=== PATIENT | female | born 1945 | race Asian ===

== ENCOUNTER 2017-03-03 21:56 | Emergency (ER) | payer MEDICARE, OTHER ==
[~2017-03-03] VITALS: Ht 157.5 cm; Wt 75.0 kg
[2017-03-03] MEDS ORDERED: WARF3TAB29 PO (22:24)
[2017-03-03] MEDS ORDERED: BENA40TA3 PO (22:24)
[2017-03-03] MEDS ORDERED: LEVO88TA7 PO (22:24)
[2017-03-03] MEDS ORDERED: AMIO200T2 PO (22:24)
[2017-03-03] MEDS ORDERED: SIMV20TA6 PO (22:24)
[2017-03-03] MEDS ORDERED: AMLO10TA55 PO (22:24)
[2017-03-03] MEDS ORDERED: WARF2.5 PO (22:24)
[2017-03-03] MEDS ORDERED: HYDR25TA84 PO (22:24)
[2017-03-03 22:32] LABS: BASOPHILS # (AUTO) 0.02 K/uL (0.00-0.20); BASOPHILS % (AUTO) 0.1 % (0.0-2.0); EOSINOPHILS # (AUTO) 0.21 K/uL (0.00-0.70); EOSINOPHILS % (AUTO) 1.35 % (1.0-6.0); HEMATOCRIT 30.4 % (36-46); HEMOGLOBIN 9.7 g/dL (12.0-16.0); LYMPHOCYTES # (AUTO) 2.1 K/uL (1.0-4.8); LYMPHOCYTES % (AUTO) 13.7 % (22.0-44.0); MEAN CORPUSCULAR HEMOGLOBIN 29.1 pg (26.0-34.0); MEAN CORPUSCULAR HGB CONC 31.9 G/dL (31.0-37.0); MEAN CORPUSCULAR VOLUME 91 fL (80-100); MONOCYTES # (AUTO) 0.9 K/uL (0.1-1.0); NEUTROPHILS # (AUTO) 12.1 K/uL (1.8-7.7); NEUTROPHILS % (AUTO) 78.8 % (40.0-70.0); PLATELET COUNT (AUTO) 639 K/uL (150-450); RED BLOOD CELL COUNT(AUTO) 3.33 MIL/uL (4.00-5.20); RED CELL DISTRIBUTION WIDTH 16.2 % (11.5-14.5); WHITE BLOOD COUNT (AUTO) 15.4 K/uL (4.5-11.0)
[2017-03-03 22:40] LABS: CREATININE 1.17 mg/dL (0.60-1.30); POTASSIUM 3.8 mmol/L (3.5-5.1)
[2017-03-03 22:46] LABS: ALBUMIN 2.5 g/dL (3.4-5.0); BILIRUBIN,TOTAL 0.5 mg/dL (0.1-1.0); TOTAL PROTEIN, SERUM 7.9 g/dL (6.4-8.2)
[2017-03-03 22:55] LABS: INR 1.8 (0.9-1.1); PROTHROMBIN TIME 18.6 SEC (9.4-11.6)
[2017-03-03] MEDS ORDERED: GENTAMICIN SULFATE 160 MG in DEXTROSE 5%-WATER 100 ML IV ONE (23:15)
[2017-03-03] MEDS ORDERED: CefTRIAXone SODIUM 2 GM in DEXTROSE 5%-WATER 50 ML IV ONE (23:15)
[2017-03-03] MEDS ORDERED: CLON.1 PO (23:59)
[2017-03-04 00:06] LABS: APPEARANCE,URINE CLOUDY (CLEAR); GLUCOSE, URINE (UA) NEGATIVE (NEGATIVE); KETONES,URINE NEGATIVE (NEGATIVE); LEUKOCYTE ESTERASE ,URINE SMALL (NEGATIVE); OCCULT BLOOD,URINE NEGATIVE (NEGATIVE); PH,URINE 5.5 (5.0-8.0); PROTEIN,URINE SEE CONFIRM (NEGATIVE)
[2017-03-04 00:14] LABS: SULFOSALICYLIC ACID,URINE 1+ (Negative)
[2017-03-04 00:15] LABS: RBC,URINE 0-2 /HPF (0-2); SQUAMOUS EPITHELIAL CELL,UR Few /LPF (None Seen)
[2017-03-04] MEDS ORDERED: HYDROCODONE/ACETAMINOPHEN 5-325 MG TABLET PO ONE (01:00)
[2017-03-04 03:46] VITALS: BP 159/57
== END 2017-03-04 03:55 | disposition home or self-care (01) ==
LOC: EMS 21:59
DX: L03.114 Cellulitis of left upper limb (principal); E44.0 Moderate protein-calorie malnutrition; R79.1 Abnormal coagulation profile; E78.00 Pure hypercholesterolemia, unspecified; I11.9 Hypertensive heart disease without heart failure; I51.9 Heart disease, unspecified; Z88.1 Allergy status to other antibiotic agents; Z91.011 Allergy to milk products; Z95.2 Presence of prosthetic heart valve; Z88.8 Allergy status to other drugs, medicaments and biological substances
CPT/HCPCS: 29125; 29240; 36415; 73110; 80053; 81001; 85025; 85610; 85730; 87040; 96375; 99285; J0696; J1580; J7060 ×2; 96365

== ENCOUNTER 2020-12-04 22:12 | Emergency (ER) | payer MEDICARE, OTHER ==
[~2020-12-04] VITALS: Ht 157.5 cm; Wt 77.3 kg
[~2020-12-04 22:12] MED LIST: AMIO200T6 PO; AMLO10TA55 PO; BENA40TA9 PO; CLON0.1T2 PO; HYDR25TA84 PO; LEVO88TA7 PO; SIMV-43 PO; WARF2.5T38 PO; WARF3TAB8 PO
[2020-12-04 22:36] VITALS: BP 143/87
[2020-12-05] MEDS ORDERED: IBUPROFEN 400 MG TABLET PO ONE (00:45)
[2020-12-05] MEDS ORDERED: ACETAMINOPHEN 325 MG TABLET PO ONE (00:45)
[2020-12-05] MEDS ORDERED: LIDOCAINE 5% TRANSDERMAL PATCH TD ONE (03:00)
== END 2020-12-05 03:48 | disposition home or self-care (01) ==
LOC: EMS 22:13
DX: M13.861 Other specified arthritis, right knee (principal); E78.00 Pure hypercholesterolemia, unspecified; I10 Essential (primary) hypertension; Z88.8 Allergy status to other drugs, medicaments and biological substances; Z91.040 Latex allergy status; Z79.01 Long term (current) use of anticoagulants
CPT/HCPCS: 93971; 99284; 73564-TC; Z7502; Z7610